=== PATIENT | male | born 1945 | race Caucasian/White ===

== ENCOUNTER 2022-02-03 15:19 | Emergency (ER) | payer MEDICARE, OTHER ==
[2022-02-03] MEDS ORDERED: oxyCODONE 5 MG Tab PO ONE ×2 (15:40→18:51)
[2022-02-03 16:21] LABS: CHLORIDE,CL 101 mmol/L (98-107); SODIUM,NA 139 mmol/L (136-145)
[2022-02-03 16:22] LABS: ANION GAP 11.5 meq/L (7-15); ESTIMATED GFR 91 mL/min (>=60)
[2022-02-03] MEDS ORDERED: Potassium Chloride 20 MEQ Tab.ER PO ONE (17:17)
[2022-02-03] MEDS ORDERED: Ketorolac 30 MG/ML SDV IM ONE (17:17)
== END 2022-02-03 19:06 | disposition home or self-care (01) ==
LOC: LL.ED 15:19
DX: S22.41XA Multiple fractures of ribs, right side, initial encounter for closed fracture (principal); I10 Essential (primary) hypertension; E11.9 Type 2 diabetes mellitus without complications; Z91.048 Other nonmedicinal substance allergy status; Z79.899 Other long term (current) drug therapy; W00.0XXA Fall on same level due to ice and snow, initial encounter
CPT/HCPCS: 36415; 71250; 80053; 85025; 96372; 99283; 99284; A9270-GY; J1885